=== PATIENT | male | born 1940 | race Hispanic/Latino ===

== ENCOUNTER 2022-03-01 16:23 | Emergency (ER) | payer OTHER ==
[~2022-03-01] VITALS: Ht 157.5 cm; Wt 90.7 kg
[2022-03-01 16:32] VITALS: BP 164/76
[2022-03-01] MEDS ORDERED: GUAI120015 PO (20:57)
[2022-03-01] MEDS ORDERED: D-ME118S47 PO (20:57)
== END 2022-03-01 21:20 | disposition home or self-care (01) ==
LOC: EDH 16:23
DX: U07.1 COVID-19 (principal); B34.9 Viral infection, unspecified; E11.9 Type 2 diabetes mellitus without complications; E78.00 Pure hypercholesterolemia, unspecified; I10 Essential (primary) hypertension
CPT/HCPCS: 99283; 87635; 87804 ×2; C9803

== ENCOUNTER 2022-08-10 17:54 | Emergency (ER) | payer OTHER ==
[~2022-08-10] VITALS: Ht 162.6 cm; Wt 82.6 kg
[~2022-08-10 17:54] MED LIST: D-ME118S47 PO; GUAI120015 PO
[2022-08-10] MEDS: ORPHENADRINE CITRATE 30 MG/ML ML ONE (18:27)
[2022-08-10] MEDS: KETOROLAC 60 MG VIAL (30MG/ML) IM ONE (18:27)
[2022-08-10] MEDS ORDERED: HYDR-4060 PO (18:54)
[2022-08-10] MEDS ORDERED: NAPR-1192 PO (18:54)
[2022-08-10] MEDS ORDERED: CYCL10TA16 PO (18:54)
[2022-08-10 19:05] VITALS: BP 173/76
== END 2022-08-10 19:06 | disposition home or self-care (01) ==
LOC: EDH 17:54
DX: M25.511 Pain in right shoulder (principal); M19.90 Unspecified osteoarthritis, unspecified site; E11.9 Type 2 diabetes mellitus without complications; E78.00 Pure hypercholesterolemia, unspecified; I10 Essential (primary) hypertension
CPT/HCPCS: 99283; 96372; J1885